=== PATIENT | male | born 1985 | race Two or more races ===

== ENCOUNTER 2024-02-16 05:02 | Emergency (ER) | payer MEDICAID, SELFPAY ==
[2024-02-16 05:02] VITALS: BMI 20.5
[2024-02-16 05:09] VITALS: BP 153/93; PULSE 73; RESP 18; TEMP 36.6; O2SAT 98
--- NOTE | 2024-02-16 05:23 | XR_ITS ---
Examination: CT lower lumbar spine, without contrast. 2-D sagittal reconstructions. 2-D coronal reconstructions. 3-D reconstructions. Date and time of exam:February 16, 2024 at 0552 hrs. Indications: Low back pain beginning 3 hours ago CTDI: vol (mGy):20.7 DLP: (mGycm):531 Technique: Multiple 1.25 mm axial sections of the lumbar spine without intravenous contrast have been obtained. 2-D sagittal and coronal reconstructions have been obtained. 3-D reconstructions have been obtained. Low dose protocols were performed. One or more of the following dose reduction techniques were used; automated exposure control, adjustment of the mA and/or KV according to patient size, use of iterative reconstruction technique. Findings: Adequate alignment lumbar vertebral bodies No lumbar vertebral body compression fracture No spondylolisthesis Lumbar pedicles laminated transverse and posterior spinous processes intact L5-S1 8 mm central lumbar disc bulge, axial image 95, contiguous with the right and left S1 nerve roots L4-L5 7 mm central right paracentral disc bulge indenting the ventral margin thecal sac L3-L4 3 mm central lumbar disc bulge L2-L3 no disc protrusion L1-L2 no disc protrusion Incidental note gallstones Impression: L5-S1 8mm central lumbar disc bulge contiguous with the right and left S1 nerve roots L4-L5 4 7 mm central right paracentral disc bulge indenting the ventral margin thecal sac L3-L4 3 mm central lumbar disc bulge Incidental note cholelithiasis
--- NOTE | 2024-02-16 05:24 | EDRME_ITS ---
Rapid Medical Screening Exam [facility] Arrival date/time: 02/16/24 05:02 38M with history of seizures and possible CVA/brain aneurysm presents to ED with back pain w/o fall/trauma. Chief Complaint: Back Pain/Injury Vital signs: Vital Signs Temperature 97.8 F 02/16/24 05:09 Pulse Rate 73 02/16/24 05:09 Respiratory Rate 18 02/16/24 05:09 Blood Pressure 153/93 H 02/16/24 05:09 Pulse Oximetry (%) 98 02/16/24 05:09 Oxygen Delivery Method Room Air 02/16/24 05:09
[2024-02-16] MEDS: CYCLObenzaPRINE 5 MG TABLET PO (05:39)
[2024-02-16] MEDS: KETOROLAC INJ 60 MG/2 ML VIAL IM (05:39)
--- NOTE | 2024-02-16 08:36 | PD.EDBACK ---
ED Back Injury Pain RME/HPI General Chief Complaint: Back Pain/Injury Stated Complaint: BACK PAIN X 3HOURS Time Seen by Provider: 02/16/24 08:36 Arrival date/time: 02/16/24 05:02 Limitations: no limitations RME / HPI RME / HPI Narrative: 02/16/24 05:02 38M with history of seizures and possible CVA/brain aneurysm presents to ED with back pain w/o fall/trauma. DR. 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 States his pain is located most to the lower back that is chronic however in the last 3 hours has had acute exacerbation in pain. Described as aching in sensation, rating 8/10. However, states since arriving to the ED the pain has improved. Denies any falls or injuries. No other associated symptoms reported. Denies fevers, chills, sweats, or urinary symptoms. Related Data Home Medications ?Medication ?Instructions ?Recorded ?Confirmed gemfibrozil 600 mg tablet 600 mg PO BID 07/05/18 07/15/18 topiramate 50 mg tablet 50 mg PO BID 07/05/18 07/15/18 Previous Rx's ?Medication ?Instructions ?Recorded naproxen 500 mg tablet (Naprosyn) 500 mg PO BID PRN pain #30 tabs 11/13/20 baclofen 10 mg tablet 10 mg PO TID PRN muscle spasm #30 02/28/23 tabs naproxen 500 mg tablet 500 mg PO BID PRN pain #30 tabs 02/28/23 cyclobenzaprine 5 mg tablet 5 mg PO TID PRN muscle spasm #30 06/07/23 tabs naproxen 500 mg tablet 500 mg PO BID PRN pain #30 tabs 06/07/23 Allergies Allergy/AdvReac Type Severity Reaction Status Date / Time No Known Allergies Allergy Verified 11/13/20 02:57 Review of Systems Review of Systems Systems Reviewed: All systems reviewed, normal except as documented Past Medical History Past Medical History NEUROLOGIC: Positive Cerebrovascular Accident and Seizures CARDIAC: Negative Congestive Heart Failure RESPIRATORY: Negative Chronic Obstructive Pulmonary Disease (COPD) GENITOURINARY: Negative Renal Disease ENDOCRINE: Negative Diabetes Mellitus Type 1 or Diabetes Mellitus Type 2 Surgical History SURGICAL: Positive Neurologic Surgery Social History SMOKING STATUS: Never smoker SUBSTANCE USE: does not use ED Exam General Limitations: Present no limitations General appearance: Present alert and in no apparent distress Head Head exam: Present atraumatic, normocephalic and normal inspection Eye Eye exam: Present normal appearance, PERRL and EOMI ENT ENT exam: Present normal exam, normal oropharynx and mucous membranes moist Neck Neck exam: Present normal inspection, full ROM and trachea midline Chest Chest inspection: Present normal inspection and symmetric chest wall rise Respiratory Respiratory exam: Present normal lung sounds bilaterally Cardiovascular Cardiovascular exam: Present regular rate, normal rhythm and normal heart sounds Abdominal Exam Abdominal exam: Present soft and normal bowel sounds Extremities Exam Extremities exam: Present normal inspection and full ROM Back Exam Back exam: Present normal inspection and full ROM; Absent tenderness or paraspinal tenderness Neurological Exam Neurological exam: Present alert, oriented X3, CN II-XII intact and normal gait (Patient was observed ambulating without difficulty. ) Psychiatric Psychiatric exam: Present normal affect and normal mood Skin Skin exam: Present warm, dry, intact and normal color Course Quality Measures none Orders Category Date Time Status CT lumbar spine wo con Stat Exams 02/16/24 05:23 Completed CYCLObenzaPRINE [Flexeril] Med 02/16/24 05:24 Discontinued 5 mg PO X1 ONE Ketorolac Inj [Toradol Inj] Med 02/16/24 05:24 Discontinued 60 mg IM X1 ONE Vital Signs Vital signs: Vital Signs Temperature 97.8 F 02/16/24 05:09 Pulse Rate 73 02/16/24 05:09 Respiratory Rate 18 02/16/24 05:09 Blood Pressure 153/93 H 02/16/24 05:09 Pulse Oximetry (%) 98 02/16/24 05:09 Oxygen Delivery Method Room Air 02/16/24 05:09 Pulse ox is 98% on room air which is adequate. Back Pain / Injury MDM Narrative MDM Narrative:: Tessie Lobo am scribing for and in the presence of Dr. Mann. 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 2-D sagittal reconstructions. 2-D coronal reconstructions. 3-D reconstructions. Date and time of exam:February 16, 2024 at 0552 hrs. Indications: Low back pain beginning 3 hours ago CTDI: vol (mGy):20.7 DLP: (mGycm):531 Technique: Multiple 1.25 mm axial sections of the lumbar spine without intravenous contrast have been obtained. 2-D sagittal and coronal reconstructions have been obtained. 3-D reconstructions have been obtained. Low dose protocols were performed. One or more of the following dose reduction techniques were used; automated exposure control, adjustment of the mA and/or KV according to patient size, use of iterative reconstruction technique. Findings: Adequate alignment lumbar vertebral bodies No lumbar vertebral body compression fracture No spondylolisthesis Lumbar pedicles laminated transverse and posterior spinous processes intact L5-S1 8 mm central lumbar disc bulge, axial image 95, contiguous with the right and left S1 nerve roots L4-L5 7 mm central right paracentral disc bulge indenting the ventral margin thecal sac L3-L4 3 mm central lumbar disc bulge L2-L3 no disc protrusion L1-L2 no disc protrusion Incidental note gallstones Impression: L5-S1 8mm central lumbar disc bulge contiguous with the right and left S1 nerve roots L4-L5 4 7 mm central right paracentral disc bulge indenting the ventral margin thecal sac L3-L4 3 mm central lumbar disc bulge Incidental note cholelithiasis Dictated By: Andrew Johnson MD Signed By: <Electronically signed by Andrew Johnson MD in OV> 02/16/24 0731 Medications / Prescriptions Medications or Prescriptions considered but not ordered:: None Medication administrations:: Medication Administration History Discontinued Medications Cyclobenzaprine HCl (Cyclobenzaprine 5 Mg Tablet) 5 mg PO X1 ONE Stop: 02/16/24 05:25 Last Admin: 02/16/24 05:39 Dose: 5 mg Documented By: BRYANNA Ketorolac Tromethamine (Ketorolac Inj 60 Mg/2 Ml Vial) 60 mg IM X1 ONE Stop: 02/16/24 05:25 Last Admin: 02/16/24 05:39 Dose: 60 mg Documented By: BRYANNA See above Consultations Consultation(s) initiated? (list below): No Diagnosis Differential diagnosis back pain/injury: lumbar radiculopathy, sciatica, strain of lumbar region and thoracic back pain Most likely diagnosis given after review of the tests above:: Degeneration of intervertebral disc Admission Indicated Admission indicated?: not indicated Admission Request Was there a request for admission?: No Disposition Plan Disposition Plan: Discharge Discharge Attestation Discharge Attestation: The patient and all family members were given an opportunity to ask questions and understood the discharge instructions. Discharge instructions specifically effects, indications for sooner follow up or return to the emergency department, and the expected course of current diagnosis. Patient condition: Stable Discharge Plan Plan Patient Disposition: HOME (Self Care) Patient condition on transfer: Stable Prescriptions/Referrals Prescriptions/Med Rec: No Action gemfibrozil 600 mg Tablet 600 mg PO BID topiramate 50 mg Tablet 50 mg PO BID naproxen [Naprosyn] 500 mg tablet 500 mg PO BID PRN (Reason: pain) Qty: 30 0RF naproxen 500 mg tablet 500 mg PO BID PRN (Reason: pain) Qty: 30 0RF cyclobenzaprine 5 mg tablet 5 mg PO TID PRN (Reason: muscle spasm) Qty: 30 0RF naproxen 500 mg tablet 500 mg PO BID PRN (Reason: pain) Qty: 30 0RF baclofen 10 mg tablet 10 mg PO TID PRN (Reason: muscle spasm) Qty: 30 0RF Referrals: Marshall Dan MD [Primary Care Provider] - In 1 week Problem List Clinical Impression: Degeneration of intervertebral disc Patient/Caregiver Discharge Instructions Discharge Activity: activity as tolerated Education Materials: ED Degenerative Disk Disease Print Language: Dutch Stand Alone Forms: Ela Award Info., Patient Portal Info Letter
== END 2024-02-16 08:53 | disposition home or self-care (01) ==
PROVIDERS: Emergency Provider Emergency Medicine; PCP Family Medicine
DX: M51.360 Other intervertebral disc degeneration, lumbar region with discogenic back pain only (principal); M51.370 Other intervertebral disc degeneration, lumbosacral region with discogenic back pain only; K80.20 Calculus of gallbladder without cholecystitis without obstruction
CPT/HCPCS: 72131; 96372; 99284; J1885; A9270

== ENCOUNTER 2024-05-27 17:23 | Emergency (ER) | payer MEDICAID, SELFPAY ==
[2024-05-27 17:24] VITALS: BMI 25.0
[2024-05-27 18:44] VITALS: BP 164/82; PULSE 82; RESP 19; TEMP 36.6; O2SAT 97
--- NOTE | 2024-05-27 18:44 | EDNOTE_ITS ---
ED Back Injury Pain RME/HPI General Chief Complaint: Back Pain/Injury Stated Complaint: Back pain since this afternoon Time Seen by Provider: 05/27/24 18:16 Arrival date/time: 05/27/24 17:23 39 year old male with past medical history of chronic back pain present to emergency room with c/o of back pain that return this morning. denies any trauma or injury. Pain is consisted with his previous back pain in the past. Denies new trauma No fevers No unexplained weight loss of night sweats No recent surgeries or recurrent bacterial infections No IVDU Patient is not immunocompromised Denies any new focal neurological deficits or new motor weakness Denies bowel or bladder incontinence or saddle anesthesia LOCATION: diffuse low back SEVERITY: Symptoms are described as being severe with limitations on activities of daily living QUALITY: Symptoms are described as being dull or achy CONTEXT: The patient is unable to identify any inciting events. DURATION/TIMING: The symptoms started approximately one day ago and have been constant this then. ASSOCIATED SYMPTOMS: The patient is unable to identify any other associated symptoms. MODIFYING FACTORS: The patient is unable to identify any alleviating or aggravating symptoms. PERTINENT ROS: no fevers, no IVDU, denies any ripping or tearing sensations, no associated abdominal pain, no focal neurological deficits and denies any saddle anesthesia, and no bowel or bladder incontinence no nausea,vomiting, or UTI/hematuria/scrotum pain REVIEW OF SYSTEMS: See History of Present Illness - with the exception of those mentioned in the history of present illness, all other systems reviewed and reported as negative GENERAL: In general the patient is awake, interactive, in an emergency department gurney. HEAD/EYES/EARS/NOSE/THROAT: normo-cephalic, atraumatic, mucus membranes are moist, anicteric, palpebral conjunctiva is pink, trachea is midline. CARDIOVASCULAR: regular rate and regular rhythm, no murmurs, heart sounds are not distant, strong pulses in all four extremities that are equal and symmetric bilateral upper and lower extremities, normal capillary refill. CHEST/PULMONARY: normal chest rise and fall, good air movement, clear to auscultation bilaterally, normal inspiratory to expiratory ratios without evidence of respiratory distress. NECK: No midline/Paraspinal tenderness, no step off ROM/Strenght intact No Kernig and bruzinski sign. No trauma ABDOMEN: soft, not tender, no masses appreciated BACK: paraspinal tenderness, no midline or step off tenderness, no rash no cva tenderness normal range of motion without pain. NEUROLOGICAL: cranio-facial features are symmetric, moves all four extremities equally without obvious limitations or weakness. EXTREMITY: no tenderness to palpation over the long bones or large joints of the bilateral upper and lower extremities, no joint swelling, no joint erythema, no signs of trauma, no unilateral leg swelling and no peripheral edema. SKIN: warm, dry, well-perfused, no jaundice, no rash, no telangiectasias or petechia. PSYCH: calm, cooperative, no evidence of psychosis or agitation Related Data Home Medications ?Medication ?Instructions ?Recorded ?Confirmed gemfibrozil 600 mg tablet 600 mg PO BID 07/05/1807/15 topiramate 50 mg tablet 50 mg PO BID 07/05/18 Previous Rx's ?Medication ?Instructions ?Recorded naproxen 500 mg tablet (Naprosyn) 500 mg PO BID PRN pa in #30 tabs 11/13/20 baclofen 10 mg tablet 10 mg PO TID PRN muscle spas m #30 02/28/23 tabs naproxen 500 mg tablet 500 mg PO BID PRN pain #30 t abs 02/28/23 cyclobenzaprine 5 mg tablet 5 mg PO TID PRN muscle spa sm #30 06/07/23 tabs naproxen 500 mg tablet 500 mg PO BID PRN pain #30 t abs 06/07/23 cyclobenzaprine 10 mg tablet 10 mg PO BID PRN muscle s pasm #30 05/27/24 tabs meloxicam 7.5 mg tablet 7.5 mg PO QDAY #30 tabs 05/18 Allergies Allergy/AdvReac Type Severity Reaction Status Date / Time No Known Allergies Allergy Verified 11/13/20 02:57 Course Course Course Narrative: Patient is admitted to the Emergency Department and evaluated. Patient appears well, is non-toxic and well hydrated. Patient appears to have an uncomplicated lumbar cervical strain. Pt. has no neurological deficits. No bowel or bladder dysfunction. Denies numbness in saddle region. Normal gait. No signs of cauda equina. Patient has no malignancy or other comorbidities. No signs of epidural abscess. No abdominal pain or pulsatile mass and has good peripheral pulses. I do not suspect AAA. Patient is given supportive home care instructions for rest, ice, use of NSAIDS, RX meds if indicated. Patient instructed to return to ER for any symptoms that are concerning to them. Review of Lumbar CT: 02/10: Impression: L5-S1 8mm central lumbar disc bulge contiguous with the right and left S1 nerve roots L4-L5 4 7 mm central right paracentral disc bulge indenting the ventral margin thecal sac L3-L4 3 mm central lumbar disc bulge Incidental note cholelithiasis Quality Measures none Orders Category Date Time Status CYCLObenzaPRINE [Flexeril] Med 05/27/24 18:44 Discontinued 5 mg PO X1 ONE Ketorolac Inj [Toradol Inj] Med 05/27/24 18:44 Discontinued 30 mg IM X1 ONE Lidocaine 5% Patch Med 05/27/24 18:44 Discontinued 1 patch TOP X1 ONE Vital Signs Vital signs: Vital Signs Temperature 97.8 F 05/27/24 18:44 Pulse Rate 82 05/27/24 18:44 Respiratory Rate 19 05/27/24 18:44 Blood Pressure 164/82 H 05/27/24 18:44 Pulse Oximetry (%) 97 05/27/24 18:44 Oxygen Delivery Method Room Air 05/27/24 18:44 Back Pain / Injury Patient data External records reviewed:: [facility] previous records Clinical information provided by:: patient Social determinants that could affect healthcare access:: none Patient has the following chronic illnesses:: back pain/chronic How is presenting disease/condition affected by chronic disease/condition?: exacerbated by Evaluation data The following diagnostics were reviewed and interpreted by me:: other (specify) (n/a ) Lab and/or radiology exams considered but not ordered:: n/a Interpretation Summary: n/a Medications / Prescriptions Medications or Prescriptions considered but not ordered:: n/a Medication administrations:: Medication Administration History Discontinued Medications Cyclobenzaprine HCl (Cyclobenzaprine 5 Mg Tablet) 5 mg PO X1 ONE Stop: 05/27/24 18:45 Last Admin: 05/27/24 18:58 Dose: 5 mg Documented By: [facility] Ketorolac Tromethamine (Ketorolac Inj 60 Mg/2 Ml Vial) 30 mg IM X1 ONE Stop: 05/27/24 18:45 Last Admin: 05/27/24 18:59 Dose: 30 mg Documented By: [facility] Lidocaine (Lidocaine 5% 1 Patch) 1 patch TOP X1 ONE Stop: 05/27/24 18:45 Last Admin: 05/27/24 19:00 Dose: 1 patch Documented By: [facility] Comments: given to mid back but had to pick low back n/a Consultations Consultation(s) initiated? (list below): No Diagnosis Differential diagnosis back pain/injury: lumbar radiculopathy, sciatica, strain of lumbar region, thoracic back pain, discitis and other (hernia ) Most likely diagnosis given after review of the tests above:: chronic back pain, hernia Admission Indicated Admission indicated?: not indicated Admission Request Was there a request for admission?: No Disposition Plan Disposition Plan: Discharge Discharge Attestation Discharge Attestation: The patient and all family members were given an opportunity to ask questions and understood the discharge instructions. Discharge instructions specifically effects, indications for sooner follow up or return to the emergency department, and the expected course of current diagnosis. Patient condition: Stable Discharge Plan Plan Patient Disposition: HOME (Self Care) Health Concerns: avoid taking any other NSAID( advil, IBU,) while on mobic Return to Ed if symptoms worsen Prescriptions/Referrals Prescriptions/Med Rec: New meloxicam 7.5 mg tablet 7.5 mg PO QDAY Qty: 30 2RF cyclobenzaprine 10 mg tablet 10 mg PO BID PRN (Reason: muscle spasm) Qty: 30 1RF No Action gemfibrozil 600 mg Tablet 600 mg PO BID topiramate 50 mg Tablet 50 mg PO BID naproxen [Naprosyn] 500 mg tablet 500 mg PO BID PRN (Reason: pain) Qty: 30 0RF naproxen 500 mg tablet 500 mg PO BID PRN (Reason: pain) Qty: 30 0RF cyclobenzaprine 5 mg tablet 5 mg PO TID PRN (Reason: muscle spasm) Qty: 30 0RF naproxen 500 mg tablet 500 mg PO BID PRN (Reason: pain) Qty: 30 0RF baclofen 10 mg tablet 10 mg PO TID PRN (Reason: muscle spasm) Qty: 30 0RF Problem List Clinical Impression: Bulging of lumbar intervertebral disc Patient/Caregiver Discharge Instructions Education Materials: Self Care Back Day Print Language: Kyrgyz Stand Alone Forms: Ela Award Info., Patient Portal Info Letter
[2024-05-27] MEDS: CYCLObenzaPRINE 5 MG TABLET PO (18:58)
[2024-05-27] MEDS: KETOROLAC INJ 60 MG/2 ML VIAL 30 MG IM (18:59)
[2024-05-27] MEDS: LIDOCAINE 5% 1 PATCH TOP (19:00)
== END 2024-05-27 19:07 | disposition home or self-care (01) ==
LOC: SERX 19:15
PROVIDERS: Emergency Provider Emergency Medicine
DX: M51.369 Other intervertebral disc degeneration, lumbar region without mention of lumbar back pain or lower extremity pain (principal); K80.20 Calculus of gallbladder without cholecystitis without obstruction
CPT/HCPCS: 96372; 99283; J1885; J3490; A9270